=== PATIENT | female | born 1940 | race Caucasian/White ===

== ENCOUNTER 2018-02-13 21:53 | Emergency (ER) | payer OTHER, MEDICARE ==
[~2018-02-13] VITALS: Ht 157.5 cm; Wt 72.3 kg
[~2018-02-13 21:53] MED LIST: NOHOMEMEDS
[2018-02-13 22:21] LABS: HEMATOCRIT 42.8 % (36.0-46.0); HEMOGLOBIN 14.4 G/DL (11.9-15.5); MCH 28.5 PG (29.0-34.0); MCHC 33.6 G/DL (30.0-36.0); MCV 84.8 FL (83-99); PLATELET COUNT 281 K/uL (156-360); RBC DIS.WIDTH-CV 13.2 % (11.8-14.6); RBC DIS.WIDTH-SD 40.8 % (39-53); RED BLOOD COUNT 5.05 M/uL (3.80-5.20); WHITE BLOOD COUNT 8.3 K/uL (4.1-10.2)
[2018-02-13 22:33] LABS: CHLORIDE 102 mEq/L (99-109)
[2018-02-13 22:34] LABS: SODIUM 141 mEq/L (136-147)
[2018-02-13 22:35] LABS: GLUCOSE 122 mg/dL (70-99)
[2018-02-13 22:39] LABS: CREATININE 1.1 mg/dL (0.6-1.3); GFR ESTIMATE (CALCULATED) 51 mL/min/
[2018-02-13 22:40] LABS: UREA NITROGEN (BUN) 31 mg/dL (9-23)
[2018-02-13 22:41] LABS: TROP-I INTERPRETATION NEGATIVE; TROPONIN-I < 0.01 ng/mL (0.0-0.30)
[2018-02-14 00:38] LABS: ALBUMIN 4.1 g/dL (3.2-4.8); MAGNESIUM 2.1 mg/dL (1.3-2.7)
[2018-02-14 00:40] LABS: TOTAL PROTEIN 7.3 g/dL (6.4-8.3)
[2018-02-14 00:42] LABS: TOTAL BILIRUBIN 0.5 mg/dL (0.0-1.0)
[2018-02-14 00:43] LABS: ALKALINE PHOSPHATASE 78 IU/L (3-129)
[2018-02-14 00:44] LABS: PHOSPHORUS 1.8 mg/dL (2.5-4.9)
[2018-02-14 00:45] LABS: AST (GOT) 35 IU/L (2-34)
[2018-02-14 00:46] LABS: ALT (GPT) 32 IU/L (3-49); DIRECT BILIRUBIN 0.2 mg/dL (0.0-0.3)
[2018-02-14 00:47] LABS: LIPASE 41 U/L (1.0-51.0)
[2018-02-14] MEDS ORDERED: ZOFRAN4 MG PO (05:05)
[2018-02-14] MEDS ORDERED: PEPCID20 MG PO (05:05)
[2018-02-14 05:32] VITALS: BP 97/62
== END 2018-02-14 06:03 | disposition home or self-care (01) ==
LOC: EME 21:53
DX: R11.2 Nausea with vomiting, unspecified (principal); R19.7 Diarrhea, unspecified; R10.13 Epigastric pain; I10 Essential (primary) hypertension; E87.6 Hypokalemia; E86.0 Dehydration; I70.0 Atherosclerosis of aorta; I45.10 Unspecified right bundle-branch block; R94.31 Abnormal electrocardiogram [ECG] [EKG]; J45.909 Unspecified asthma, uncomplicated; Z90.49 Acquired absence of other specified parts of digestive tract
CPT/HCPCS: 71046; 80048; 80076; 83605; 83690; 83735; 84100; 84484; 85027; 93005; 99281; 99285; J2405; J3480; J7030; S0028

== ENCOUNTER 2018-05-22 14:50 | Emergency (ER) | payer OTHER, MEDICARE ==
[~2018-05-22] VITALS: Ht 160 cm; Wt 72.7 kg
[~2018-05-22 14:50] MED LIST changes: +PEPCID20 MG PO; +ZOFRAN4 MG PO
[2018-05-22 15:05] LABS: HEMATOCRIT 38.9 % (36.0-46.0); HEMOGLOBIN 13.2 G/DL (11.9-15.5); MCH 29.1 PG (29.0-34.0); MCHC 33.9 G/DL (30.0-36.0); MCV 85.7 FL (83-99); PLATELET COUNT 328 K/uL (156-360); RBC DIS.WIDTH-CV 13.7 % (11.8-14.6); RBC DIS.WIDTH-SD 43.2 % (39-53); RED BLOOD COUNT 4.54 M/uL (3.80-5.20); WHITE BLOOD COUNT 11.4 K/uL (4.1-10.2)
[2018-05-22 15:16] LABS: ALBUMIN 4.4 g/dL (3.2-4.8); CHLORIDE 104 mEq/L (99-109); POTASSIUM 3.3 mEq/L (3.7-5.4); SODIUM 143 mEq/L (136-147)
[2018-05-22 15:18] LABS: GLUCOSE 108 mg/dL (70-99); TOTAL PROTEIN 7.9 g/dL (6.4-8.3)
[2018-05-22 15:20] LABS: TOTAL BILIRUBIN 0.4 mg/dL (0.0-1.0)
[2018-05-22 15:22] LABS: ALKALINE PHOSPHATASE 93 IU/L (3-129); CREATININE 1.2 mg/dL (0.6-1.3); GFR ESTIMATE (CALCULATED) 46 mL/min/
[2018-05-22 15:23] LABS: UREA NITROGEN (BUN) 16 mg/dL (9-23)
[2018-05-22 15:24] LABS: AST (GOT) 23 IU/L (2-34)
[2018-05-22 15:25] LABS: ALT (GPT) 16 IU/L (3-49)
[2018-05-22 17:02] LABS: LIPASE 53 U/L (1.0-51.0)
[2018-05-22 17:03] LABS: APPEARANCE CLEAR ((CLEAR)); BILIRUBIN NEGATIVE; BLOOD NEGATIVE; COLOR STRAW ((YELLOW)); GLUCOSE (STRIP) NEGATIVE; KETONES NEGATIVE; LEUKOCYTES NEGATIVE; NITRITE NEGATIVE; PROTEIN (STRIP) NEGATIVE; UCUL ADDED? NO; UROBILINOGEN 0.2 MG/DL (0.2-1.0)
[2018-05-22] MEDS ORDERED: ZOFRAN ODT4 MG PO (19:25)
[2018-05-22] MEDS ORDERED: CIPRO500 MG PO (19:25)
[2018-05-22] MEDS ORDERED: FLAGYL500 MG PO (19:25)
[2018-05-22] MEDS ORDERED: PERCOCET 5/31 TABLET PO (19:35)
[2018-05-22 19:50] VITALS: BP 134/88
== END 2018-05-22 19:52 | disposition home or self-care (01) ==
LOC: EME 14:50
DX: K57.32 Diverticulitis of large intestine without perforation or abscess without bleeding (principal); I10 Essential (primary) hypertension; J45.909 Unspecified asthma, uncomplicated
CPT/HCPCS: 74177; 80053; 81003; 83690; 85027; 99281; 99285; J1885; J3010; J7030